=== PATIENT | male | born 1960 | race Caucasian/White ===

== ENCOUNTER 2017-08-08 09:03 | Day surgery (SDC) | payer MEDICAID ==
[2017-08-07 11:02] VITALS: BMI 22.1
--- NOTE | 2017-08-08 10:01 | CP.SDSHP ---
Same Day Surgery H & P - History Proposed Procedure: colonoscopy - Previous Medical/Surgical History Cardiac: ASHD/CAD - Allergies Allergies: Allergies No Known Allergies Allergy (Verified 08/07/17 11:02) - Physical Exam Vital Signs: Vital Signs 08/08/17 09:30 Temperature 97 F L Pulse Rate 72 Respiratory 20 Rate Blood Pressure 132/73 O2 Sat by Pulse 100 Oximetry - Date & Time Date: 08/08/17 Time: 10:01 Short Stay Discharge - Short Stay Discharge Admitting Diagnosis/Reason for Visit: SCREENING Disposition: HOME/ ROUTINE
[2017-08-08] MEDS ORDERED: Propofol 10 mg/ml Inj (20 ML) ONE (10:10)
[2017-08-08] MEDS ORDERED: Lactated Ringer's 500 ML IV SCH (10:15)
[2017-08-08] MEDS ORDERED: Atropine 0.4 mg/ml Inj (1 mL) ONE (10:26)
[2017-08-08 11:20] VITALS: TEMP 97.8
[2017-08-08 11:23] VITALS: BP 105/65; PULSE 52; RESP 19; O2SAT 100
== END 2017-08-08 11:20 | disposition home or self-care (01) ==
LOC: C.ENDO 09:03
PROVIDERS: ATTEND Colon & Rectal Surgery
DX: K62.1 Rectal polyp (principal); K64.8 Other hemorrhoids
CPT/HCPCS: 45388; 88305; J0461; J2704; J3010; J7120